=== PATIENT | female | born 1960 | race Caucasian/White ===

== ENCOUNTER → 2019-07-20 13:37 | Outpatient (BNVA) | payer MEDICAID, SELFPAY | PROVIDERS: Visit Provider Family Medicine | DX: M25.552 Pain in left hip (principal); M16.12 Unilateral primary osteoarthritis, left hip | CPT/HCPCS: 73502 ==

== ENCOUNTER → 2019-10-17 09:01 | Outpatient (BNVA) | payer MEDICAID, SELFPAY | PROVIDERS: Visit Provider Specialist | DX: M16.12 Unilateral primary osteoarthritis, left hip (principal) | CPT/HCPCS: 73502 ==

== ENCOUNTER → 2019-11-11 11:53 | Outpatient (BNVA) | payer MEDICAID, SELFPAY | PROVIDERS: PCP Family Medicine; Visit Provider Nurse Practitioner Family | DX: Z11.59 Encounter for screening for other viral diseases (principal) | CPT/HCPCS: 87635 ==

== ENCOUNTER 2019-11-15 11:03 | Observation (INO) | payer MEDICAID, SELFPAY ==
[2019-11-04 09:17] VITALS: BMI 36.6
--- NOTE | 2019-11-04 09:50 | ANES.PREANE2 ---
Pre-Anesthetic Assessment Pre-Anesthetic Assessment: Height/Weight: Height 1.7 m Weight 106.141 kg Preop Diagnosis: Left hip DJD Proposed Procedure: Operation Date: 11/15/19 10:30 Proposed Procedures p Total Hip Arthroplasty 39961 M16.12(Left) - Jessie Jara MD Familial anesthetic complications: no hx Was Beta Andrea taken within 24 hours: N/A Last intake: phentermine last taken 8.30 Social: Social History: No alcohol and No tobacco Comment: former smoker Exam: Pre-Anes Outpt Exam: alert, oriented x 3, clear to auscultation bilaterally and regular rate & rhythm Airway: Cervical ROM: WNL MP: 3 Dentition: Other (missing) Metabolic: Metabolic: Morbid obesity Musc/skel: Musc/skel: Scoliosis Anesthetic Plan: ASA status: 2 Anesthesia: General Risk of > 500 ml blood loss (7ml/kg in children): Yes, adequate IV access and fluids planned PFSH Anesthesia PFSH: Medical History Pain of left hip Social History Smoking and tobacco status: current every day smoker Alcohol intake: never Data Anesthesia Cardiac Studies: No Data to Display
[2019-11-04 09:55] LABS: Basophils # 0.1 10^3/uL (0.0-0.1); Eosinophils # 0.1 10^3/uL (0.0-0.8); Eosinophils % 1.2 %; Hematocrit 46.4 % (37.0-47.0); Lymphocytes # 2.7 10^3/uL (0.8-4.8); Lymphocytes % 32.3 %; Mean Corpuscular HGB Conc 32.3 g/dL (30.0-36.0); Mean Corpuscular Hemoglobin 28.8 pg (28.0-34.0); Mean Corpuscular Volume 89.2 fL (81-99); Mean Platelet Volume 9.1 fL (7.4-10.4); Monocytes # 0.8 10^3/uL (0.2-0.9); Monocytes % 9.1 %; Neutrophils # 4.63 10^3/uL (1.8-7.7); Nucleated Red Blood Cells % 0 %; Platelet Count 312 10^3/cmm (130-400); Red Cell Distribution Width 13.5 % (12.1-15.1); White Blood Count 8.3 10^3/uL (4.0-10.0)
[2019-11-04 10:07] LABS: Urine Color Yellow (Yellow); pH Urine 5 (5-7)
[2019-11-04 10:08] LABS: Add Urine Microscopic? YES; Bilirubin Urine Neg (NEGATIVE); Blood Urine Trace (Negative); Glucose Urine UA Norm (Normal); Ketones Urine Negative (Negative); Leukocyte Esterase Urine 2+ (Negative); Nitrate Urine Negative (Negative); Protein Urine Neg (Negative); Urobilinogen Urine Neg (Negative)
[2019-11-04 10:09] LABS: WBC Urine 15-25 /hpf (0-5)
[2019-11-04 10:10] LABS: Add Urine Culture? Yes; Bacteria Urine 2+
[2019-11-04 10:25] LABS: Alanine Aminotransferase 14 U/L (0-33); Albumin Level 4.5 g/dL (3.5-5.2); Alkaline Phosphatase 73 IU/L (35-105); Anion Gap 14.5 (5-19); Aspartate Amino Transferase 12 U/L (0-32); Blood Urea Nitrogen 14 mg/dL (6-20); Carbon Dioxide 26 mmol/L (22-29); Chloride 101 mmol/L (98-107); Globulin 3.5 g/dL (1.3-4.6); Glomerular Filtration Rate 85.9 mL/min (90-130); Glucose 111 mg/dL (65-115); Osmolality Calculated 281 mOsm/kg (285-295); Potassium 4.5 mmol/L (3.5-5.1); Sodium 137 mmol/L (136-145); Total Bilirubin 0.2 mg/dL (0.15-1.2)
[2019-11-15] VITALS (21 sets, daily range): BP systolic 111–174; BP diastolic 64–109; PULSE 56–88; RESP 16–18; TEMP 36.2–37.1; O2SAT 94–100
[2019-11-15] MEDS: sodium chloride 0.9% 1,000 ML 30 ML IV (06:30)
[2019-11-15] MEDS: CELEcoxib 200 mg Capsule 400 MG PO (06:30)
--- NOTE | 2019-11-15 06:42 | P.ANESUD_ITS ---
Pre-Anesthetic Update Pre-Anesthetic Assessment: Date of Surgery/Procedure: 11/15/19 Preop Mya gnosis: Left hip DJD Proposed Procedure: Operation Date: 11/15/19 07:00 Proposed Procedures p Total Hip Arthroplasty 32240 M16.12(Left) - Jessie Jara MD Any changes to Pre-Anesthetic Assessment?: No Last Intake: Intake Last Liquid Date 11/14/19 Last Liquid Time 21:00 Last Solid Date 11/14/19 Last Solid Time 17:15 Vitals: Temperature 97.2 F L 11/15/19 06:07 Temperature Source Temporal Artery S can 11/15/19 06:07 Pulse Rate 71 11/15/19 06:07 Pulse Rhythm 11/15/19 06:07 Pulse Strength 3+ Normal 11/15/19 06:07 Respiratory Rate 18 11/15/19 06:07 Blood Pressure 174/101 11/15/19 06:07 Blood Pressure Osiris n 125 11/15/19 06:07 Pulse Oximetry 97 11/15/19 06:07 Oxygen Delivery Me thod 11/15/19 06:07 Exam: Pre-Anes Outpt Exam: alert, oriented x 3, clear to auscultation bilaterally and regular rate & rhythm Cardiac Studies: No Data to Display
--- NOTE | 2019-11-15 06:45 | W.PM.OPSUD ---
Surgery/Procedure H&P Update DATE OF PROCEDURE: November 15, 2019 DATE H&P PERFORMED: 10/17/19 H&P UPDATE INFORMATION: I have reviewed H&P completed within last 30 days, I have examined patient prior to procedure, No changes to prior documentation and H[place] is in [facility] [place] indicated PREOP DIAGNOSIS: Left hip DJD PLANNED PROCEDURE: Operation Date: 11/15/19 07:00 Proposed Procedures p Total Hip Arthroplasty 51271 M16.12(Left) - Jessie Jara MD Related Problem List Diagnoses (1) Osteoarthritis of left hip: Qualifiers: Osteoarthritis type: unspecified Qualified Code(s): M16.12 - Unilateral primary osteoarthritis, left hip
[2019-11-15] MEDS: ceFAZolin 1,000 mg SDV 1000 MG IRRIGATION (08:03)
[2019-11-15] MEDS: vancomycin 1,000 MG SDV 1000 MG XX (08:04)
[2019-11-15] MEDS: fentaNYL 50 mcg/mL INJ 2mL IVP ×2 (10:04→10:09)
--- NOTE | 2019-11-15 10:19 | XR_ITS ---
WS: [id number] EXAM: AP PELVIS DATE OF EXAMINATION: 11/15/2019, 1027 hours COMPARISON: Pelvis and hip films from 10/17/2019. HISTORY: Patient is 59 years old with new left hip arthroplasty. FINDINGS: Since the earlier examination there has been interval placement of a noncemented left total hip arthr oplasty. No hardware complication or bony malalignment is seen. Air in the soft tissues correlates wi th an open procedure. XR/XR pelvis 1-2V* 49604 IMPRESSION: New left total hip arthroplasty without acute abnormality.
[2019-11-15] MEDS: morphine 4 mg/mL SDV 1 mL 2 MG IVP ×2 (10:35→10:40)
--- NOTE | 2019-11-15 10:49 | P.OP_ITS ---
Operative Report Date of procedure: November 15, 2019 Pre-op Diagnosis: Left hip DJD severe with obesity Post-op diagnosis: same Post-op Findings: Severe degenerative osteoarthritis with large osteophytes. Exposure complicated by obesity. Post-operatively, the patient was stable at 90 degrees of flexion with 60 degrees of internal rotation and 30 degrees of abduction. She was stable to gentle toe hang and to external rotation. Procedure Done: Left Total Hip Arthroplasty untilizing the [place] Accolade II total hip system with a size 5 x 127 degree neck angle hip stem, a Trident II T ritanium solid back acetabular shell size 52 with an E alpha code, an MDM liner size 42 mm inner diameter with an E alpha code, and MDM insert size 28 mm inner diameter by 42E to match the MDM liner, and a Biolox ceramic femoral head size 28 mm x +0 mm offset Specimens removed/disposition: Femoral head, disposed of Pathology: none sent Surgeon: Jessie Jara Category Director: [facility] OR technicians Anesthesia: General (Intubated ASA 2) Estimated blood loss (mL): 300 IV fluids (mL): 1,200 Urine output (mL): 400 Complications: None Condition: stable Disposition: PACU (Then to floor for postoperative rehabilitation and pain management) Brief History: This 59-year-old woman was admitted today with complaints of severe right hip pain secondary to degenerative osteoarthritis. The patient wished to undergo total hip arthroplasty after discussion was had in the office. Consents were signed. Preoperatively, she was aware of the risks and complications. Questions have been answered, and she has watched the joint video. Procedure: Patient was brought to the operating theater. She was transferred to the operating room table and subsequently administered a general intubated anesthesia, ASA 2. Following administration of adequate anesthesia, the patient was placed in full lateral position and held in position with a pegboard. Also, the patient had minimal movement in her right lower extremity preoperatively. The patient's left lower extremity was then prepped and draped in usual fashion utilizing DuraPrep. It was draped free. Following prepping and draping a surgical pause was performed. At the time of surgical pause, we identified the site and side of surgery. We also identified the patient and preoperative surgical markings. Confirmation was made of equipment availability. Additionally, the patient's preoperative IV antibiotic, Ancef 2g, was confirmed as being given in a timely fashion and being the appropriate antibiotic. Following the surgical pause, an incision was made centering over the patient's greater trochanter continuing proximally and distally as necessary to allow access to the hip joint. Dissection continued through skin and soft tissues using a scalpel, and hemostasis was obtained using electrocautery. The tensor fascia jane was identified and incised longitudinally. The patient had quite deep subcutaneous tissue, and this required significant retraction and made exposure of the joint quite difficult. Sciatic nerve was identified and protected throughout the surgical procedure. A Charnley U retractor was placed after the tensor fascia jane had been incised longitudinally, and the sciatic nerve had been identified. The hip was internally rotated, and the piriformis muscle was identified and tagged. Piriformis muscle along with the remaining short external rotators were then incised from the posterior aspect of the hip joint. These were retracted posteriorly. The capsule was entered in a T-type fashion with the edges being tagged, and subsequently the hip was dislocated. Following hip dislocation, a femoral neck osteotomy was accomplished in the appropriate position. The synovium was sent to pathology. We then evaluated the acetabulum. The femur was retracted anteriorly. Soft tissues were retracted and the labrum was removed. We then began reaming. Exposure was noted to be difficult sec ondary to this patient's size, and the acetabulum was noted to be quite small with respect to the soft tissue envelope surrounding the patient's hip. Once the femoral head was removed, we reamed to a size 51 to allow for a size 52 acetabular shell. The acetabulum was impacted into position. It was noted that the acetabulum matched the bony anatomy. There were osteophytes superiorly which were removed as well. The cup was noted to seat nicely and had good fixation upon impact. The MDM liner was then impacted into position with significant difficulty secondary to the soft tissue. We confirmed that the acetabular insert was completely seated prior to addressing the femur. Attention was directed to the proximal femur. The proximal femur was lifted out of the wound. A canal finder was passed after the box chisel. The reamer was used to lateralize. We then began broaching. We broached sequentially and had excellent fit and fill with the size 5 Accolade II broach. A trial reduction was accomplished with the +0 mm offset femoral head to provide better stability and leg length. With this in place, we had the above stabilities, and at that time, we felt that we had restored leg lengths. We also felt that we had excellent stability noted above. Therefore, trial components were removed after the hip was dislocated. The size 5 Accolade II stem with a 127 degree neck was impacted into position without difficulty and onto this was placed a 28 mm by +0 mm offset femoral head which had been placed into the MDM insert size 42E with a 28 mm outer diameter. With a +0 mm offset femoral head, we had the above-noted stability. The stem was noted to seat nicely prior to placement of the femoral head MDM insert construct. The wound was copiously irrigated with 20 mL of Betadine and 500 mL of normal saline mixed together. Subsequently, we suctioned this out and irrigated the wound copiously with lactated Ringer's. At this time, with all components in appropriate position, the hip was reduced. Following reduction of the prosthesis once again, we confirmed the stability of the hip. Leg lengths were also felt to be satisfactory. Being satisfied with the prosthesis, attention was directed to closure. Closure was accomplished with 0 Vicryl in the capsular tissues. Piriformis was reattached with 0 Vicryl as well. Tensor fascia jane was closed with 0 Vicryl in an interrupted fashion. The subcutaneous tissues were closed with a combination of 0 Vicryl in 2 layers and 2-0 Monocryl. Vancomycin powder and a Gelfoam thrombin mixture was placed into the wound as well. The skin was closed with a running 3-0 Monocryl followed by Exofin and Steri-Strips. This was covered with Telfa and Tegaderm. The patient was placed in an abduction pillow. He was returned the Recovery Room in a satisfactory condition and will be discharged to the floor for postoperative rehabilitation and pain management. There were no complications. Associated Problem List Diagnoses (1) Osteoarthritis of left hip: Qualifiers: Osteoarthritis type: unspecified Qualified Code(s): M16.12 - Unilateral primary osteoarthritis, left hip (2) Obesity (BMI 35.0-39.9 without comorbidity):
--- NOTE | 2019-11-15 10:50 | PM.PACU ---
PACU note Post-Anesthesia Exam: awake and vital signs stable Disposition: admitted
[2019-11-15] MEDS: chlorhexidine gluconate 0.12% Btl 473 mL 30 ML MUCOUS MEM ×3 (13:52→21:39)
[2019-11-15] MEDS: CELEcoxib 200 mg Capsule PO (17:02)
[2019-11-15] MEDS: iron polysaccharide complex 150 mg Capsule PO (17:02)
[2019-11-15] MEDS: sennosides-docusate Tablet 2 TAB PO (17:02)
[2019-11-15] MEDS: calcium carbonate 500 mg Chew Tablet 1000 MG PO (17:02)
--- NOTE | 2019-11-15 21:56 | PC.NURSE ---
times temp heart rate resp 02 blood pressure 1130 am 98.8 82 18 98 111/64 1200 98.8 78 18 99 135/82 1300 98.6 83 18 97 133/77 1400 98.2 80 18 96 131/86 1800 97.7 82 16 97 132/84
[2019-11-16] VITALS: BP 125/78; PULSE 93; RESP 18; TEMP 37.1; O2SAT 96
[2019-11-16 04:00] VITALS: BP 135/80; PULSE 88; RESP 18; TEMP 36.6; O2SAT 97
[2019-11-16 05:07] LABS: Basophils # 0.1 10^3/uL (0.0-0.1); Basophils % 0.5 %; Eosinophils % 0.1 %; Hematocrit 39.7 % (37.0-47.0); Hemoglobin 12.6 g/dL (11.5-15.3); Lymphocytes # 1.7 10^3/uL (0.8-4.8); Lymphocytes % 15.3 %; Mean Corpuscular HGB Conc 31.7 g/dL (30.0-36.0); Mean Corpuscular Volume 91.3 fL (81-99); Mean Platelet Volume 9.2 fL (7.4-10.4); Monocytes # 1.1 10^3/uL (0.2-0.9); Monocytes % 9.7 %; Neutrophils # 8.35 10^3/uL (1.8-7.7); Neutrophils % 73.9 %; Nucleated Red Blood Cells % 0 %; Platelet Count 242 10^3/cmm (130-400); Red Blood Count 4.35 10^6/uL (4.1-5.3); Red Cell Distribution Width 14.3 % (12.1-15.1); White Blood Count 11.3 10^3/uL (4.0-10.0)
[2019-11-16 05:31] LABS: Anion Gap 14.4 (5-19); Blood Urea Nitrogen 9 mg/dL (6-20); Calcium 8.6 mg/dL (8.5-10.5); Carbon Dioxide 24 mmol/L (22-29); Chloride 105 mmol/L (98-107); Glomerular Filtration Rate 85.9 mL/min (90-130); Glucose 139 mg/dL (65-115); Osmolality Calculated 286 mOsm/kg (285-295); Potassium 4.4 mmol/L (3.5-5.1); Sodium 139 mmol/L (136-145)
--- NOTE | 2019-11-16 07:20 | ANE.PACU2 ---
Inpatient post-anesthesia follow up: Airway intact: Yes Vital signs: Temperature 97.9 F Pulse Rate 88 Respiratory Rate 18 Blood Pressure 135/80 Pulse Oximetry 97 Oxygen Delivery Me thod [ Room Air Current Rate & Del brian] Oxygen Delivery Me thod Room Air Oxygen Flow Rate 8 Fraction of Inspir ed Oxygen Hydration adequate: Yes Nausea and vomiting: No Pain level: 1 Mental status: Baseline
[2019-11-16 07:47] VITALS: BP 120/78; PULSE 69; RESP 18; TEMP 36.7; O2SAT 96
[2019-11-16] MEDS: aspirin 325 mg EC Tablet PO (07:50)
[2019-11-16] MEDS: iron polysaccharide complex 150 mg Capsule PO (07:50)
[2019-11-16] MEDS: calcium carbonate 500 mg Chew Tablet 1000 MG PO (07:50)
[2019-11-16] MEDS: CELEcoxib 200 mg Capsule PO (07:51)
[2019-11-16] MEDS: sennosides-docusate Tablet 2 TAB PO (07:51)
[2019-11-16] MEDS: cholecalciferol (vitamin D3) 1,000 unit Tablet 1000 UNIT PO (07:51)
[2019-11-16] MEDS: multivitamin therapeutic Tablet 1 TAB PO (07:52)
[2019-11-16] MEDS: mupirocin oint 22 gm 1 APPLIC NASAL (08:02)
[2019-11-16] MEDS: chlorhexidine gluconate 0.12% Btl 473 mL 30 ML MUCOUS MEM ×2 (08:03→12:33)
[2019-11-16 11:10] VITALS: BP 134/84; PULSE 90; RESP 18; TEMP 36.8; O2SAT 97
--- NOTE | 2019-11-16 13:20 | P.DS_ITS ---
Discharge Providers Date of Admission: 11/15/19 11:03 Date of Discharge: November 16, 2019 Attending Provider at Admission: Jessie Jara MD Attending Provider at Discharge: Jessie Jara MD Primary Care Provider: Della Manuel MD Diagnoses at Discharge Discharge Diagnosis (1) Osteoarthritis of left hip: Status: Acute Qualifiers: Osteoarthritis type: unspecified Qualified Code(s): M16.12 - Unilateral primary osteoarthritis, left hip (2) Obesity (BMI 35.0-39.9 without comorbidity): Status: Acute Reason for Visit Reason for Visit: Left Hip Osteoarthritis Hospital Course Hospital Course: Patient was admitted to the hospital on November 14 for same-day surgery. The procedure was total hip arthroplasty. This was well- tolerated. Postoperatively, she was admitted to the floor for postoperative rehabilitation, medical pain management, and observation overnight. On the first postoperative day, the patient was independent in her room. She was working with physical therapy. She felt she was ready for discharge as did I. Her wound was benign. There was no drainage. Dressing was removed. There was no evidence of DVT. She was neurologically intact. Therefore, she was discharged home. Her insurance will not cover home health, however, she understands the exercises she is to do. Discharge Summary: Patient was admitted with a diagnosis of severe left hip degenerative osteoarthritis with obesity. She underwent the following pr ocedure: Left Total Hip Arthroplasty untilizing the [place] Accolade II total hip system with a size 5 x 127 degree neck angle hip stem, a Trident II Tritanium solid back acetabular shell size 52 with an E alpha code, an MDM liner size 42 mm inner diameter with an E alpha code, and MDM insert size 28 mm inner diameter by 42E to match the MDM liner, and a Biolox ceramic femoral head size 28 mm x +0 mm offset. She was discharged home on postop day 1. Although she receives chronic pain medication from her primary care physician, we will give her one prescription of tramadol No. 30. She understands and will notify her primary care. Physical Exam Const: COMMON NORMALS: no acute distress, average body habitus, patient oriented x3 and alert GENERAL APPEARANCE: cooperative and comfortable ORIENTATION/CONSCIOUSNESS: Yes awake HENMT: COMMON NORMALS: normocephalic and atraumatic HEAD & SCALP: normocephalic and atraumatic Eye: GENERAL EYE: appearance normal, both eyes and all related structures Chest: COMMONS NORMALS: normal inspection of the chest Resp: COMMON NORMALS: normal respiratory effort EFFORT & INSPECTION: Yes able to speak in complete sentences and Yes symmetric chest movement Extremity: LEFT LOWER EXTREMITY: Yes hip joint (Dressing is removed. The incision is benign. There is no drainage. There is no evidence of DVT. She is neurologically intact.) Neuro: COMMON NORMALS: patient oriented x3 SENSORIUM/ORIENTATION: Yes alert Psych: COMMON NORMALS: mental status grossly normal APPEARANCE: Yes grossly normal ATTITUDE: Yes calm and Yes engaged ATTENTION/CONCENTRATION: Yes attention grossly intact Skin: COMMON NORMALS: no rashes or lesions noted GENERAL SKIN EXAM: no rashes or lesions noted Urinary Catheter Management^: Berger: Cath Placed During This Visit: yes, but has since been removed by the nurse Reason for Continuing Indwelling Catheter: Decision to DC Catheter Urinary Catheter Date of Insertion: 11/15/19 Urinary Catheter Time of Insertion: 08:00 Date Urinary Catheter Removed: 11/16/19 Time Urinary Catheter Discontinued: 07:08 Discharge Data Data Completed and Pending: Completed Studies During Hospitalization Category Date Time Status XR pelvis 1-2V* 7 2170 Routine Exams 11/15/19 10:19 Completed Pending at discharge Category Date Time Status Complete Blood Co unt w/Auto AM LABS Lab 11/17/19 04:00 Ordered Complete Blood Co unt w/Auto AM LABS Lab 11/18/19 04:00 Ordered Labs from last 24 hours 11/16/19 11/16/19 04:15 04:15 WBC 11.3 H RBC 4.35 Hgb 12.6 Hct 39.7 MCV 91.3 MCH 29.0 MCHC 31.7 RDW 14.3 Plt Count 242 MPV 9.2 Neut % (Auto) 73.9 Lymph % (Auto) 15.3 [place] % (Auto) 9.7 Eos % (Auto) 0.1 Baso % (Auto) 0.5 Neut # (Auto) 8.35 H Lymph # (Auto) 1.7 [place] # (Auto) 1.1 H Eos # (Auto) 0.0 Baso # (Auto) 0.1 Nucleated RBC % (a uto) 0 Nucleated RBCs # 0.0 Sodium 139 Potassium 4.4 Chloride 105 Carbon Dioxide 24 Anion Gap 14.4 BUN 9 Creatinine 0.7 GFR Calculation 85.9 L Glucose 139 H Calculated Osmolal ity 286 Calcium 8.6 Vitals: Last Vital Signs Temp 98.2 F 11/16/19 11:10 Pulse 90 11/16/19 11:10 Resp 18 11/16/19 11:10 BP 134/84 11/16/19 11:10 Pulse Ox 97 11/16/19 11:10 Discharge Plan Discharge Patient Disposition: Home Condition: Stable Prescriptions: New acetaminophen 500 mg Tablet 1,000 mg PO Q8H 15 Days Qty: 0 RF: 0 aspirin 325 mg Tablet,Delayed Release (Dr/Ec) 325 mg PO DAILY Qty: 0 RF: 0 Continued celecoxib [Celebrex] 200 mg capsule 200 mg PO BID Qty: 60 RF: 1 tramadol 50 mg tablet 50 mg PO Q6H PRN (Reason: Pain) Qty: 30 RF: 0 Held phentermine [Adipex-P] 37.5 mg tablet 37.5 mg PO DAILY Qty: 30 RF: 0 Hold Instructions: Resume on 12/01/19. Discuss with Dr. Kaleb Muniz Continuing Month Box 1 mg tablet 1 mg PO BID Qty: 56 RF: 3 Hold Instructions: Resume on 12/01/19. Patient states she does not need Discharge Orders: Discharge Order (Routine); Ordered 11/16/19 Ordered By: Jessie Jara Other Ambulatory Orders: DME: Walker (Order) Location: None Selected Ordered By: Jessie Jara [place] [facility] [place] Jessie Jara MD [Physician] - 12/07/19 9:15 am (You have an appointment on December 06 at 9:15am) Discharge Diet: Usual diet Discharge Activity: Increase activity as tolerated, Limit activity as instructed, Use walker/crutches as instructed and As per PT/OT instructions Activity Restrictions/Additional Instructions: Cover wound as needed. Posterior hip precautions. Weightbearing as tolerated. Discharge Attestations Time Spent in Discharge Care*: greater than 30 min Quality Metrics Clinical Quality Measures During this hospital stay, did patient experience: None Coding Level of Care Code Acute Vp Design for Francisco Fwd Exam Comprehensive Diagnoses Osteoarthritis of left hip M16.12 Osteoarthritis type: unspecified Obesity (BMI 35.0-39.9 without comorbidity) E66.9
--- NOTE | 2019-11-16 14:05 | PC.RESP ---
Smoking Cessation information sent to patient.
[2019-11-16 15:04] VITALS: BP 134/84; PULSE 90; RESP 18; TEMP 36.8; O2SAT 97
== END 2019-11-16 15:20 | disposition home or self-care (01) ==
LOC: MEDSURG 11:03
PROVIDERS: Admitting Provider Specialist; PCP Family Medicine; Visit Provider Specialist
PROC: (CPT 27130; principal; 2019-11-15 07:00)
DX: M16.12 Unilateral primary osteoarthritis, left hip (principal); M25.752 Osteophyte, left hip; E66.9 Obesity, unspecified; Z68.36 Body mass index [BMI] 36.0-36.9, adult; Z87.891 Personal history of nicotine dependence
CPT/HCPCS: 27130; 12345; 36415; 51702; 72170; 80048; 80053; 81001; 85025; 87077; 87086; 87186; 87641; 96361; 96365; 96366; 97116; 97161; 97166; 97530; C1776; G0378; J0131; J0360; J0690; J2270; J2405; J2704; J3010; J3370; J3490; J7030

== ENCOUNTER → 2019-12-07 09:36 | Outpatient (BNVA) | payer MEDICAID, SELFPAY | PROVIDERS: PCP Family Medicine; Visit Provider Specialist | DX: M16.12 Unilateral primary osteoarthritis, left hip (principal); Z98.890 Other specified postprocedural states | CPT/HCPCS: 73502 ==

== ENCOUNTER → 2020-02-09 13:49 | Outpatient (BNVA) | payer MEDICAID, SELFPAY | PROVIDERS: PCP Family Medicine; Visit Provider Specialist | DX: Z47.89 Encounter for other orthopedic aftercare (principal); Z96.642 Presence of left artificial hip joint | CPT/HCPCS: 73502 ==

== ENCOUNTER → 2020-08-15 08:10 | Outpatient (BNVA) | payer MEDICAID, SELFPAY | PROVIDERS: PCP Family Medicine; Visit Provider Specialist | DX: M25.559 Pain in unspecified hip (principal); Z96.642 Presence of left artificial hip joint | CPT/HCPCS: 73502 ==

== ENCOUNTER → 2022-05-26 10:57 | Outpatient (BNVA) | payer MEDICAID, SELFPAY | PROVIDERS: PCP Family Medicine; Visit Provider Family Medicine | DX: R53.83 Other fatigue (principal) | CPT/HCPCS: 80053; 82306; 82607; 84443; 85025 ==

== ENCOUNTER → 2022-06-06 09:45 | Outpatient (BNVA) | payer MEDICAID, SELFPAY | PROVIDERS: PCP Family Medicine; Visit Provider Family Medicine | DX: R79.89 Other specified abnormal findings of blood chemistry (principal) | CPT/HCPCS: 84439; 84443 ==

== ENCOUNTER → 2022-08-18 09:26 | Outpatient (BNVA) | payer MEDICAID, SELFPAY | PROVIDERS: PCP Family Medicine; Visit Provider Specialist | DX: M16.12 Unilateral primary osteoarthritis, left hip (principal); Z96.642 Presence of left artificial hip joint | CPT/HCPCS: 73502; 99213 ==

== ENCOUNTER → 2022-08-28 09:00 | Outpatient (BNVA) | payer MEDICAID, SELFPAY | PROVIDERS: PCP Family Medicine; Visit Provider Nurse Practitioner Family | DX: E55.9 Vitamin D deficiency, unspecified (principal) | CPT/HCPCS: 82306 ==